=== PATIENT | female | born 1960 | race Caucasian/White ===

== ENCOUNTER 2023-01-16 21:24 | Emergency (ER) | payer MEDICARE, MEDICAID, SELFPAY ==
[2023-01-16 21:06] VITALS: BP 125/80; PULSE 106; RESP 18; TEMP 37.1; O2SAT 100; BMI 15.0
--- NOTE | 2023-01-16 21:17 | ED_ITS ---
HPI - Fall General Chief Complaint: Head Injury Stated Complaint: fall Time Seen by Provider: 01/16/23 23:45 Source: other Source comment: Isela NURSE AND KATHERINE REPORT Mode of arrival: ambulance Limitations: other (non verbal, hx dementia) Limitations comment: Hx dementia History of Present Illness HPI Narrative: This 63-year-old female with a history of frontotemporal dementia was transferred from the [facility] where she currently resides for evaluation of a forehead laceration. According to the report the patient was in the shower with a nurse's aide when she fell forward and struck her forehead. She has approximately 6 cm vertical/angulated laceration on her forehead. She has some bruising on both knees. The patient is nonverbal and additional history cannot be obtained at this time. MD complaint: Reports fall Onset (ago): hour(s) (1) Fall from: Reports wheelchair Context: Reports other (fell forward out of wheelchair) Location of injury: Reports head (forehead) Related Data Home Medications Medication Instructions Recorded Confirmed bisacodyl 5 mg tablet,delayed 5 mg PO DAILY 01/16/23 01/16/23 release (Dulcolax (bisacodyl)) clonazepam 0.5 mg tablet 0.5 mg PO DAILY 01/16/23 01/16/23 duloxetine 30 mg capsule,delayed 30 mg PO DAILY 01/16/23 01/16/23 release fluoxetine 10 mg capsule 10 mg PO DAILY 01/16/23 01/16/23 lisinopril 5 mg tablet 5 mg PO DAILY 01/16/23 01/16/23 loratadine 10 mg tablet 10 mg PO DAILY 01/16/23 01/16/23 (Allerclear) Allergies Allergy/AdvReac Type Severity Reaction Status Date / Time No Known Drug Allergies Allergy Verified 01/16/23 21:10 Review of Systems ROS Status of ROS unobtainable due to mental status (hx dementia) Exam Narrative Exam Narrative: Awake, nonverbal female, she is sitting with her eyes closed and her fists clenched, she opens her eyes during my exam and looks at me but does not speak-According to the records this is apparently her baseline HEENT: Normocephalic, 6 cm irregular laceration to the mid forehead area, mild active bleeding noted pupils are equal and reactive, tympanic membranes are occluded with cerumen, mucous membranes are moist, no visible tongue injury Neck: No appreciable midline tenderness or step-off Chest: Lungs are clear with good air entry, no wheezing rhonchi or rales appreciated CVS: Regular rate and rhythm S1 and S2, patient is probably tachycardic with a pulse of 106, no murmurs rubs or gallops appreciated Abdomen: Soft, nondistended, normal bowel sounds Extremities: No bony tenderness in the cervical spine and thoracic spine or lumbar spine appreciated, no step-offs noted, no abrasions or ecchymosis noted, mild ecchymosis noted to both knees. Neuro: Patient is nonverbal, her fists are clenched and she is tremulous Extremity: Bilateral knee ecchymosis with no bony abnormality, leg length are equal Constitutional Vital Signs - 24 hr 01/16/23 21:06 Temperature 98.7 F Pulse Rate [Monitor] 106 H Respiratory Rate 18 Blood Pressure [Right Arm] 125/80 H Pulse Oximetry 100 Oxygen Delivery Method Room Air Course Vital Signs Vital signs: Vital Signs Temperature 98.7 F 01/16/23 21:06 Pulse Rate 106 H 01/16/23 21:06 Respiratory Rate 18 01/16/23 21:06 Blood Pressure 125/80 H 01/16/23 21:06 Pulse Oximetry 100 01/16/23 21:06 Oxygen Delivery Method Room Air 01/16/23 21:06 Temperature 98.7 F 01/16/23 21:06 Pulse Rate 106 H 01/16/23 21:06 Respiratory Rate 18 01/16/23 21:06 Blood Pressure 125/80 H 01/16/23 21:06 Pulse Oximetry 100 01/16/23 21:06 Oxygen Delivery Method Room Air 01/16/23 21:06 MDM - Fall MDM Narrative Medical decision making narrative: 63-year-old female with a history of frontotemporal dementia who is nonverbal and currently living at the [facility] and [facility] was transferred to the emergency department after she was being given a shower and fell forward striking her forehead. She presents with a 6 cm laceration to the mid forehead area. She is at her neurologic baseline according to the patient's daughter and . She was taken to CT scan and CT scan of the head and neck was performed. CT scan of the head neck were negative for acute findings. The laceration was closed with 3 Vicryl subcutaneous sutures and 13 Ethilon skin sutures with good wound edge approximation. The patient's was satisfied with the repair. Laceration site was covered with bacitracin and she will be returned to the extended care facility where she currently resides. Sutures Removed in 10-12 days. Discharge Plan Discharge Chief Complaint: Head Injury Clinical Impression: Closed head injury, Complex laceration of face Patient Disposition: [facility] Time of Disposition Decision: 23:50 Condition: Good Prescriptions / Home Meds: No Action loratadine [Allerclear] 10 mg tablet 10 mg PO DAILY clonazepam 0.5 mg tablet 0.5 mg PO DAILY bisacodyl [Dulcolax (bisacodyl)] 5 mg tablet,delayed release (DR/EC) 5 mg PO DAILY duloxetine 30 mg capsule,delayed release(DR/EC) 30 mg PO DAILY fluoxetine 10 mg capsule 10 mg PO DAILY lisinopril 5 mg tablet 5 mg PO DAILY Instructions: Head Injury (ED), Facial Laceration (ED) Additional Instructions: Sutures can be removed and 10-12 days. Please keep the wound covered with bacitracin and a sterile dressing until that time. Stand Alone Forms: Portal Instructions Referrals: Physician,Non-Staff, MD [Primary Care Provider] - 1 week Procedures ED Laceration Laceration Laceration 1: Size (cm): 6 Description: linear and clean Depth: involves muscle layer Anesthetic used: with epi Anesthesia technique: local infiltration Amount (ml): 10 Pre-repair: irrigated extensively Skin layer closed with: other (Ethilon) Size (cm): 4-0 Number of sutures: 13 Technique: simple, interrupted Subcutaneous layer closed with: Vicryl Size: 4-0 Number of sutures: 3 Technique: simple, interrupted
--- NOTE | 2023-01-16 21:23 | CT_ITS ---
The [address] [address] Patient Name: TONY HARGROVE MRN: [facility]:[id number] date: 1960 Sex: F Assigned Patient Location: ED.MAIN Current Patient Location: ED.MAIN Accession/Order Number: [id number] Exam Date: 01/16/2023 21:35 Report Date: 01/16/2023 22:24 At the request of: LUCIO MARKER Procedure: CT cervical spine wo con EXAM: NONCONTRAST CT HEAD EXAM: NONCONTRAST CT CERVICAL SPINE HISTORY: Trauma. 63-year-old female with head injury after falling out of her wheelchair. No loss of consciousness. Patient was in the shower and fell out of her wheelchair struck her forehead she has history of dementia and is nonverbal. TECHNIQUE: CT HEAD: Multiple axial images are taken from the level the vertex down to the base of the skull without the use of IV contrast. Images were then reconstructed in the sagittal and coronal planes. This exam was performed according to our departmental dose-optimization program which includes use of Automated Exposure Control, adjustment of the mA and/or kV according to patient size and/or use of iterative reconstruction technique. CT CERVICAL SPine: Multiple axial images are taken of the cervical spine without the use of IV contrast. Images were then reconstructed in the sagittal and coronal planes. ALARA as low as reasonably achievable CT dose technique was performed. These exams performed according to our departmental dose-optimization program which includes use of Automated Exposure Control, adjustment of the mA and/or kV according to patient size and/or use of iterative reconstruction technique. COMPARISON: None. FINDINGS: CT HEAD: Brain Parenchyma: There is global, diffuse atrophy with periventricular decreased white matter attenuation. No intracranial mass. No intracranial hemorrhage. Posterior fossa: Normal. Midline shift: None Extra-axial fluid collection: None Ventricles: Normal. Mastoid air cells: Normal. Sinuses: There is some mucosal thickening of the sphenoid sinuses. Cranium: No depressed skull fracture. Hyperostosis frontalis Soft tissues: Normal. Orbits: Normal. CT CERVICAL SPINE: There is straightening of the cervical spine with reversal of normal cervical lordosis. Vertebral body heights are maintained. Multilevel degenerative disc disease is demonstrated. The portions of the lung apices included in the field of view are grossly unremarkable. Bone mineralization is decreased. There is no evidence for acute fracture. The thyroid demonstrates innumerable hypodense nodules. IMPRESSION: CT HEAD: 1. Chronic small vessel ischemic change. 2. In the setting of hyperacute stroke, findings may be radio-occult on CT. If clinically indicated, MRI may help better delineate. CT CERVICAL SPINE: 1. Straightening of the cervical spine with loss of normal cervical lordosis. This may be due to muscle spasm and/or cervical collar. 2. Multilevel degenerative disc disease. If symptoms continue, an MRI would help better delineate. 3. No CT evidence for acute fracture to the cervical spine. 4. Abnormal thyroid. Outpatient thyroid ultrasound would help better delineate. Electronically authenticated by: DAVI CLEMENTE Date: 01/16/2023 22:24
--- NOTE | 2023-01-16 21:23 | CT_ITS ---
The [address] [address] Patient Name: TONY HARGROVE MRN: [facility]:[id number] date: 1960 Sex: F Assigned Patient Location: ED.MAIN Current Patient Location: ED.MAIN Accession/Order Number: [id number] Exam Date: 01/16/2023 21:35 Report Date: 01/16/2023 22:24 At the request of: LUCIO MARKER Procedure: CT head/brain wo con EXAM: NONCONTRAST CT HEAD EXAM: NONCONTRAST CT CERVICAL SPINE HISTORY: Trauma. 63-year-old female with head injury after falling out of her wheelchair. No loss of consciousness. Patient was in the shower and fell out of her wheelchair struck her forehead she has history of dementia and is nonverbal. TECHNIQUE: CT HEAD: Multiple axial images are taken from the level the vertex down to the base of the skull without the use of IV contrast. Images were then reconstructed in the sagittal and coronal planes. This exam was performed according to our departmental dose-optimization program which includes use of Automated Exposure Control, adjustment of the mA and/or kV according to patient size and/or use of iterative reconstruction technique. CT CERVICAL SPine: Multiple axial images are taken of the cervical spine without the use of IV contrast. Images were then reconstructed in the sagittal and coronal planes. ALARA as low as reasonably achievable CT dose technique was performed. These exams performed according to our departmental dose-optimization program which includes use of Automated Exposure Control, adjustment of the mA and/or kV according to patient size and/or use of iterative reconstruction technique. COMPARISON: None. FINDINGS: CT HEAD: Brain Parenchyma: There is global, diffuse atrophy with periventricular decreased white matter attenuation. No intracranial mass. No intracranial hemorrhage. Posterior fossa: Normal. Midline shift: None Extra-axial fluid collection: None Ventricles: Normal. Mastoid air cells: Normal. Sinuses: There is some mucosal thickening of the sphenoid sinuses. Cranium: No depressed skull fracture. Hyperostosis frontalis Soft tissues: Normal. Orbits: Normal. CT CERVICAL SPINE: There is straightening of the cervical spine with reversal of normal cervical lordosis. Vertebral body heights are maintained. Multilevel degenerative disc disease is demonstrated. The portions of the lung apices included in the field of view are grossly unremarkable. Bone mineralization is decreased. There is no evidence for acute fracture. The thyroid demonstrates innumerable hypodense nodules. IMPRESSION: CT HEAD: 1. Chronic small vessel ischemic change. 2. In the setting of hyperacute stroke, findings may be radio-occult on CT. If clinically indicated, MRI may help better delineate. CT CERVICAL SPINE: 1. Straightening of the cervical spine with loss of normal cervical lordosis. This may be due to muscle spasm and/or cervical collar. 2. Multilevel degenerative disc disease. If symptoms continue, an MRI would help better delineate. 3. No CT evidence for acute fracture to the cervical spine. 4. Abnormal thyroid. Outpatient thyroid ultrasound would help better delineate. Electronically authenticated by: DAVI CLEMENTE Date: 01/16/2023 22:24
[2023-01-16] MEDS: LIDOCAINE HCL 1%-EPINEPHRINE 1:100,000 20 ML MDV (22:04)
--- NOTE | 2023-01-16 23:57 | PC.NURSE ---
Per Dr. Beltran 13 stitches were placed exteriorly and 3 on an inner layer Pt resting in bed with at bedside Pt's aware of plan for her return to [facility]
[2023-01-17] MEDS: BACITRACIN 0.9 GM PACKET 1 PACKET TOPICAL (00:02)
--- NOTE | 2023-01-17 00:15 | PC.NURSE ---
Bacitracin and a sterile gauze bandage applied to wound Pt and updated that squad is to arrive at 1am to take her back to [facility] where she resides pt's leaving bedside
== END 2023-01-17 01:29 ==
PROVIDERS: Emergency Provider Emergency Medicine
DX: S01.81XA Laceration without foreign body of other part of head, initial encounter (principal); S09.8XXA Other specified injuries of head, initial encounter; G31.09 Other frontotemporal neurocognitive disorder; F02.80 Dementia in other diseases classified elsewhere, unspecified severity, without behavioral disturbance, psychotic disturbance, mood disturbance, and anxiety; W05.0XXA Fall from non-moving wheelchair, initial encounter
CPT/HCPCS: 12053; 70450; 72125; 99284